=== PATIENT | female | born 1980 | race Hispanic/Latino ===

== ENCOUNTER 2017-03-11 21:14 | Emergency (ER) | payer SELFPAY ==
[~2017-03-11] VITALS: Ht 152.4 cm; Wt 72.6 kg
[2017-03-11 22:10] LABS: BASOPHILS # (AUTO) 0.1 (0.0-0.1); BASOPHILS % 0.7 % (0.0-1.0); EOSINOPHILS # (AUTO) 0.2 (0.0-0.4); EOSINOPHILS % 3.3 % (0.0-6.0); HEMATOCRIT 33.1 % (34.2-44.1); HEMOGLOBIN 10.6 g/dL (12.0-16.0); LYMPHOCYTES # (AUTO) 1.9 (1.0-3.2); LYMPHOCYTES % 26.4 % (18.0-39.1); MEAN CORPUSCULAR HEMOGLOBIN 28.4 pg (28-32); MEAN CORPUSCULAR VOLUME 88.7 fL (81-99); MONOCYTES # (AUTO) 0.5 (0.2-0.8); MONOCYTES % 6.7 % (4.4-11.3); NEUTROPHILS # (AUTO) 4.5 (2.1-6.9); NEUTROPHILS % 62.2 % (38.7-80.0); PLATELET COUNT 274 x10e3/uL (140-360); RED BLOOD COUNT 3.73 x10e6/uL (3.6-5.1); RED CELL DISTRIBUTION WIDTH 14.7 % (11.7-14.4)
[2017-03-12 00:23] LABS: BILIRUBIN,URINE NEGATIVE (NEGATIVE); KETONES,URINE NEGATIVE (NEGATIVE); LEUKOCYTE ESTERASE ,URINE 2+ (NEGATIVE); NITRITE,URINE NEGATIVE (NEGATIVE); URINE UROBILINOGEN 0.2 mg/dL (0.2 - 1)
[2017-03-12 00:25] LABS: CLARITY,URINE CLOUDY (CLEAR); COLOR,URINE RED (YELLOW); PROTEIN,URINE DIPSTICK 2+ (NEGATIVE)
[2017-03-12 00:37] LABS: BACTERIA,URINE MODERATE /HPF; EPITHELIAL CELLS,URINE FEW /LPF; RBC,URINE >50 /HPF (0-5)
[2017-03-12 01:22] VITALS: BP 112/54
[2017-03-12] MEDS ORDERED: MACROBID 100 M100 MG PO (01:24)
== END 2017-03-12 02:22 | disposition home or self-care (01) ==
LOC: ER 21:14
DX: O20.0 Threatened abortion (principal); N30.90 Cystitis, unspecified without hematuria
CPT/HCPCS: 36415; 81001; 84702; 85025; 87086; 99283